=== PATIENT | male | born 1985 | race American Indian/Alaskan Native ===

== ENCOUNTER 2016-12-28 18:48 | Emergency (ER) | payer BC ==
[2016-12-28] MEDS ORDERED: TYLENOL PO ONE (18:57)
[2016-12-28] MEDS ORDERED: ZOFRAN ODT PO ONE (21:43)
--- NOTE | 2016-12-28 21:47 | Emergency Department Report ---
HPI - General Chief Complaint: Upper Respiratory Infection Time Seen by Provider: 12/28/16 21:42 - HPI HPI: Patient here reports that he is having cough, headache, fever, nausea, diarrhea and body aches. Reports some vomiting. He said this started yesterday and is getting worse bodyache is at 9 out of 10 denies any sore throat. Headache is a 3 out of 10 that comes and goes. Did not take any [id number] medication. He is able to tolerate liquids well. Denies any shortness of breath or chest pain. Patient temperature is 101.3) triage and he was given Tylenol 975 mg. denies any chronic medical problems. ED Past Medical Hx - Past Medical History Previous Medical History?: No - Surgical History Past Surgical History?: No - Family History Family history: no significant - Social History Smoking Status: Current Every Day Smoker Substance Use Type: None - Medications Home Medications: Home Medications Medication Instructions Recorded Confirmed Last Taken Type Acetaminophen/Codeine [Tylenol #3] 1 tab PO Q6H PRN #020 tab 01/15/16 Unknown Rx ALBUTEROL Inhaler [ProAir HFA 2 puff IH QID PRN #1 inhalation 12/28/16 Unknown Rx Inhaler] Azithromycin [Zithromax Z-LILLIAM] 250 mg PO DAILY #6 tab 12/28/16 Unknown Rx Ibuprofen [Motrin 600 MG tab] 600 mg PO Q4-6H PRN #21 tablet 12/28/16 Unknown Rx Ondansetron [Zofran Odt] 4 mg PO Q8HR PRN #15 tab.rapdis 12/28/16 Unknown Rx Oseltamivir [Tamiflu] 75 mg PO BID #10 cap 12/28/16 Unknown Rx guaiFENesin DM [Robitussin Dm] 10 ml PO Q6HR PRN #250 ml 12/28/16 Unknown Rx predniSONE [Deltasone] 50 mg PO QDAY #5 tab 12/28/16 Unknown Rx ED Review of Systems ROS: Stated complaint: BODY ACHES / FEVER Other details as noted in HPI Comment: All other systems reviewed and negative Constitutional: chills, fever Eyes: denies: eye pain, eye discharge ENT: congestion. denies: ear pain, throat pain Respiratory: cough. denies: shortness of breath, SOB with exertion, SOB at rest , stridor, wheezing Cardiovascular: denies: chest pain, palpitations, edema, syncope Genitourinary: denies: urgency, dysuria, frequency, hematuria, discharge Musculoskeletal: myalgia. denies: back pain, arthralgia Skin: denies: rash Neurological: headache, weakness. denies: numbness, paresthesias, confusion, abnormal gait, vertigo Physical Exam - Physical Exam Vital Signs: Vital Signs 12/28/16 18:54 Temperature 101.3 F H Pulse Rate 104 H Blood Pressure 126/77 O2 Sat by Pulse 20 L Oximetry Vital Signs 12/28/16 12/28/16 12/28/16 18:54 21:59 22:16 Temperature 101.3 F H Pulse Rate 104 H Pulse Rate [ 103 H Posterior Bilateral] Respiratory 20 Rate Respiratory 18 Rate [Posterior Bilateral] Blood Pressure 126/77 Blood Pressure [Left] O2 Sat by Pulse 20 L Oximetry 12/28/16 12/28/16 22:24 22:28 Temperature 98.9 F Pulse Rate 103 H Pulse Rate [ 108 H Posterior Bilateral] Respiratory 20 Rate Respiratory 18 Rate [Posterior Bilateral] Blood Pressure Blood Pressure 125/72 [Left] O2 Sat by Pulse 100 Oximetry General: This is a 31-year-old male well-nourished, well-developed and nontoxic in appearance. Physical Exam: Head: Normocephalic atraumatic Mouth: Moist, no pharyngeal exudate or erythema. Uvula is midline and oral airway is patent. No facial swelling. No peritonsillar abscesses. Nose: Congested without erythema to mucosa. Clear Drainage. Maxillary and frontal sinuses nontender to palpate Neck: Supple, no C-spine tenderness, no tracheal deviation. Nontender to palpate. no adenopathy Ears: Bilateral TMs congested without erythema. Bilateral EAC without any redness swelling or drainage. Abdomen: Soft, nontender to palpate in all quadrants, normal bowel sounds in all quadrant and negative CVA tenderness bilaterally. Neurological: GCS of 15, alert and oriented 3. Speech is clear and fluid. Normal gait. No motor or sensory deficit. Normal reflexes. No facial drooping. No pronator drift and negative Romberg. Eyes: Bilateral pupils equal and reactive to light, bilateral EOM intact. Bilateral sclera and conjunctiva without injection. Normal accommodation. Lungs: Clear to auscultate bilaterally no rhonchi wheezes or rales. Normal work of breathing . Dry cough no use of accessory muscles. extremity; No CCE. +2 pulses. No neurovascular compromise Cardiovascular: S1-S2, tachycardic at 104 regular rhythm. No murmurs. Skin: clean Dry and intact no rash no lesions Psych: Normal mood and behavior ED Course Vital Signs 12/28/16 18:54 Temperature 101.3 F H Pulse Rate 104 H Blood Pressure 126/77 O2 Sat by Pulse 20 L Oximetry Vital Signs 12/28/16 12/28/16 12/28/16 18:54 21:59 22:16 Temperature 101.3 F H Pulse Rate 104 H Pulse Rate [ 103 H Posterior Bilateral] Respiratory 20 Rate Respiratory 18 Rate [Posterior Bilateral] Blood Pressure 126/77 Blood Pressure [Left] O2 Sat by Pulse 20 L Oximetry 12/28/16 12/28/16 22:24 22:28 Temperature 98.9 F Pulse Rate 103 H Pulse Rate [ 108 H Posterior Bilateral] Respiratory 20 Rate Respiratory 18 Rate [Posterior Bilateral] Blood Pressure Blood Pressure 125/72 [Left] O2 Sat by Pulse 100 Oximetry Vital Signs 12/28/16 12/28/16 12/28/16 18:54 21:59 22:16 Temperature 101.3 F H Pulse Rate 104 H Pulse Rate [ 103 H Posterior Bilateral] Respiratory 20 Rate Respiratory 18 Rate [Posterior Bilateral] Blood Pressure 126/77 Blood Pressure [Left] O2 Sat by Pulse 20 L Oximetry 12/28/16 12/28/16 12/28/16 22:24 22:28 23:18 Temperature 98.9 F Pulse Rate 103 H 102 H Pulse Rate [ 108 H Posterior Bilateral] Respiratory 20 20 Rate Respiratory 18 Rate [Posterior Bilateral] Blood Pressure Blood Pressure 125/72 [Left] O2 Sat by Pulse 100 99 Oximetry - Reevaluation(s) Reevaluation #1: 12/28/16 23:15 Patient receives Xopenex and Atrovent nebulizer, Toradol, Tylenol, Zofran ODT and deltas disown 60 mg in emergency room. Upon reevaluation he said he is feeling better, temperature is normalized. General orally challenged in emergency room and is able to tolerate for couple of apple juice without any vomiting. 12/28/16 23:16 ED Medical Decision Making - Lab Data Influenza A positive - Radiology Data Radiology results: report reviewed Chest x-ray revealed moderate central bronchitis. Suspect hazy streaky infiltrate in the left lower lung zone. Minimal infrahilar atelectasis. - Medical Decision Making ED course: Discussed with patient that he has influenza A along with pneumonia in the left lung. I also discussed with him that he has bronchitis and also that he has some minimal collapse of part of his lungs and he will need to do deep breathing and coughing exercises every 3 hours while he is awake to help to keep his lungs expanded. Patient was given Xopenex 1.25 mg along with Atrovent 0.5 mg nebulizer treatment, Orapred 60 mg by mouth, Zofran 4 mg ODT, Tylenol 975 mg by mouth in triage and Toradol 60 mg IM and emergency room. She was orally challenged with 4 cups of apple juice and he tolerated this without any nausea vomiting or diarrhea. Skin temperature is normalized and his heart rate is 102 which is down from 104. I discussed the case with Dr. Farr and is located with patient being discharged home. I discussed the patient was easily need to increase his fluid intake. 2-3 days of fluid per day, take Motrin every 4-6 hours for the next 24 hours to keep his fever down and prevent dehydration, and take antibiotic and other medication as prescribed. She voiced understanding of discharge diagnosis and instructions. Condition discharged home with prescription for Tamiflu,Guaifenessin, Zithromax, albuterol , Motrin, and prednisone. Body aches and pain has subsided along with headache since Tylenol and Toradol. Has no nausea at present. Critical care attestation.: If time is entered above; I have spent that time in minutes in the direct care of this critically ill patient, excluding procedure time. ED Disposition Clinical Impression: Influenza A, Cough, Community acquired pneumonia, Fever in adult, Atelectasis, Nausea vomiting and diarrhea Bronchitis, acute Qualifiers: Bronchitis organism: unspecified organism Qualified Code(s): J20.9 - Acute bronchitis, unspecified Disposition: DISCHARGED TO HOME OR SELFCARE Is pt being admited?: No Does the pt Need Aspirin: No Condition: Stable Instructions: Acute Bronchitis (ED), Acute Nausea and Vomiting (ED), Community- acquired Pneumonia (ED), Influenza (ED), Fever in Adults (ED), Acute Diarrhea ( ED), Nutrition Tips for Relief of Diarrhea (ED) Additional Instructions: Please follow up with her primary care physician in 2 days and if he did not have one week and follow-up with [facility] If his symptoms worsen, then please return to the emergency room. Take medication as prescribed. Increase her fluid intake to 23 L of fluid per day Take cough medicine. Please rest for 72 hours please take deep breaths and cough every 3 hours while awake to keep her lungs expanded Prescriptions: ALBUTEROL Inhaler [ProAir HFA Inhaler] 2 puff IH QID PRN #1 inhalation PRN Reason: Cough and Wheezing Azithromycin [Zithromax Z-LILLIAM] 250 mg PO DAILY #6 tab guaiFENesin DM [Robitussin Dm] 10 ml PO Q6HR PRN #250 ml PRN Reason: Cough Ibuprofen [Motrin 600 MG tab] 600 mg PO Q4-6H PRN #21 tablet PRN Reason: FEVER AND PAIN Ondansetron [Zofran Odt] 4 mg PO Q8HR PRN #15 tab.rapdis PRN Reason: Nausea And Vomiting Oseltamivir [Tamiflu] 75 mg PO BID #10 cap predniSONE [Deltasone] 50 mg PO QDAY #5 tab Referrals: PRIMARY CARE, [Primary Care Provider] - 12/30/16 [facility] [Outside] - 12/30/16 Forms: Accompanied Note, Work/School Release Form(ED)
[2016-12-28] MEDS ORDERED: DELTASONE PO ONE (21:53)
[2016-12-28] MEDS ORDERED: ATROVENT IH ONE (21:53)
[2016-12-28] MEDS ORDERED: XOPENEX IH ONE (21:53)
[2016-12-28] MEDS ORDERED: TORADOL IM ONE (21:54)
[2016-12-28 22:25] VITALS: BP 125/72
--- NOTE | 2016-12-28 22:34 | XRay Report ---
FINAL REPORT PROCEDURE: XR CHEST ROUTINE 2V TECHNIQUE: Two view PA lateral chest HISTORY: fever and cough COMPARISON: No prior studies are available for comparison. FINDINGS: Mild central peribronchial cuffing and bronchovascular sheath thickening consistent with central bronchitis. Slight eventration left hemidiaphragm. Slight hazy infiltrate in the left lower lung zone. Suspect minimal atelectasis in the right middle lobe and/or lingula. No effusion seen IMPRESSION: Moderate central bronchitis Suspect hazy streaky infiltrate in the left lower lung zone Minimal infrahilar atelectasis
== END 2016-12-29 | disposition home or self-care (01) ==
LOC: ED 18:48
DX: J11.1 Influenza due to unidentified influenza virus with other respiratory manifestations (principal); J18.9 Pneumonia, unspecified organism; J98.11 Atelectasis; R11.2 Nausea with vomiting, unspecified; R19.7 Diarrhea, unspecified; F17.200 Nicotine dependence, unspecified, uncomplicated
CPT/HCPCS: 71020; 87400; 94640; 96372; 99283; J1885; J7512; Q0162

== ENCOUNTER 2017-01-25 09:27 | Emergency (ER) | payer BC ==
[2017-01-25 09:38] VITALS: BP 129/73
--- NOTE | 2017-01-25 11:33 | Emergency Department Report ---
HPI - General Chief Complaint: Extremity Problem,Nontraumatic Time Seen by Provider: 01/25/17 11:02 - HPI HPI: 31-year-old -Malag[place] male comes in for complaint of knot on left arm states that the get painful when they get cold. These knots have been present for greater than 2 years. And they are intermittent. He reports he was seen and [place] which they were not able to diagnose. He reports that the pain can be as high as 8 out of 10. Patient reports he has not taken any pain medication for these. Patient denies any fever chills no nausea no vomiting patient reports he is able to move his arm without difficulties. He reports no past medical history. He currently takes no medication has no known drug allergies. ED Past Medical Hx - Past Medical History Previous Medical History?: No - Surgical History Past Surgical History?: No - Social History Smoking Status: Current Every Day Smoker Substance Use Type: None - Medications Home Medications: Home Medications Medication Instructions Recorded Confirmed Last Taken Type Acetaminophen/Codeine [Tylenol #3] 1 tab PO Q6H PRN #020 tab 01/15/16 Unknown Rx ALBUTEROL Inhaler [ProAir HFA 2 puff IH QID PRN #1 inhalation 12/28/16 Unknown Rx Inhaler] Azithromycin [Zithromax Z-LILLIAM] 250 mg PO DAILY #6 tab 12/28/16 Unknown Rx Ibuprofen [Motrin 600 MG tab] 600 mg PO Q4-6H PRN #21 tablet 12/28/16 Unknown Rx Ondansetron [Zofran Odt] 4 mg PO Q8HR PRN #15 tab.rapdis 12/28/16 Unknown Rx Oseltamivir [Tamiflu] 75 mg PO BID #10 cap 12/28/16 Unknown Rx guaiFENesin DM [Robitussin Dm] 10 ml PO Q6HR PRN #250 ml 12/28/16 Unknown Rx predniSONE [Deltasone] 50 mg PO QDAY #5 tab 12/28/16 Unknown Rx Ibuprofen [Motrin 800 MG tab] 800 mg PO Q8HR PRN #30 tablet 01/25/17 Unknown Rx ED Review of Systems ROS: Stated complaint: LEFT ELBOW PAIN Other details as noted in HPI Constitutional: denies: chills, fever Eyes: denies: eye pain, eye discharge, vision change ENT: denies: ear pain, throat pain Respiratory: denies: cough, shortness of breath, wheezing Cardiovascular: denies: chest pain, palpitations Endocrine: no symptoms reported Gastrointestinal: denies: abdominal pain, nausea, diarrhea Genitourinary: denies: urgency, dysuria Musculoskeletal: denies: back pain, joint swelling, arthralgia Skin: denies: rash, lesions Neurological: denies: headache, weakness, paresthesias Psychiatric: denies: anxiety, depression Hematological/Lymphatic: denies: easy bleeding, easy bruising Physical Exam - Physical Exam Vital Signs: Vital Signs 01/25/17 09:33 Temperature 98.0 F Pulse Rate 73 Respiratory 16 Rate Blood Pressure 129/73 O2 Sat by Pulse 100 Oximetry Physical Exam: GENERAL: Alert and oriented x3, no apparent distress, Normal Gait, atraumatic. HEAD: Head is normocephalic and a-traumatic. EYES: Extra ocular muscles are intact. Pupils are equal, round, and reactive to light and accommodation. MOUTH:Mouth is well hydrated and without lesions. Tonsils nonerythematous or swollen, Uvula midline, Tongue not elevated. Mucous membranes are moist. Posterior pharynx clear, no exudate or lesions. Patent airways. NECK: Supple. Non edematous, No carotid bruits. No lymphadenopathy or thyromegaly. LUNGS: Symetrical with respiration, No wheezing, no rales or crackles, CTAB. HEART: S1, S2 present, regular rate and rhythm without murmur, no rubs, no gallops. EXTREMITIES/MUSCULOSKELETAL: No cyanosis, clubbing, rash, lesions or edema. Full ROM bilaterally. UE/LE Pulses 2+ bilaterally. LE and UE 5+ strength bilaterally NEUROLOGIC: No focal Deficit, Cranial nerves II through XII are grossly intact. No loss of sensation, No facial droop, Negative rhomberg. PSYCHIATRIC: Mood is congruent with affect, denies suicidal or homicidal ideations. SKIN: Warm and dry, No lesions, No ulceration or induration present left arm soft lesion on the anterior of the forearm and posterior of the upper arm. There is no erythematous nonerythematous is nontender patient is able to have full range of motion. No discharge no open areas of wounds. ED Course Vital Signs 01/25/17 09:33 Temperature 98.0 F Pulse Rate 73 Respiratory 16 Rate Blood Pressure 129/73 O2 Sat by Pulse 100 Oximetry ED Medical Decision Making - Medical Decision Making 31-year-old -Malagasy male comes in for nontraumatic knots on his left arm that's been present greater than 2 years. I discussed the patient at this is not considered an acute emergency. Stated the patient that his vital signs are within normal limits he has no fever no nausea no vomiting no chills. I discussed the patient that there is no drainage from the ear able to move her arm without any difficulties. That we will refer him to a primary care provider for further evaluation. I did list 3 primary care providers for his choice. I did give him a prescription for Motrin for pain management. Patient verbalized understanding Critical care attestation.: If time is entered above; I have spent that time in minutes in the direct care of this critically ill patient, excluding procedure time. ED Disposition Clinical Impression: Lesion of upper extremity Disposition: DISCHARGED TO HOME OR SELFCARE Is pt being admited?: No Does the pt Need Aspirin: No Condition: Stable Additional Instructions: Please follow up with the primary care provider for further evaluation of those knots. I have listed 3 for urinary discharge summary of awful given U a prescription for ibuprofen for pain. Prescriptions: Ibuprofen [Motrin 800 MG tab] 800 mg PO Q8HR PRN #30 tablet PRN Reason: Pain Referrals: PRIMARY CAREMD [Primary Care Provider] - 3-5 Days [facility] [Provider Group] - 3-5 Days SHRUTHI FRANCOIS MD [Staff Physician] - 3-5 Days JOSE ESCALANTE MD [Staff Physician] - 3-5 Days Forms: Work/School Release Form(ED)
== END 2017-01-25 11:45 | disposition home or self-care (01) ==
LOC: ED 09:27
DX: L98.8 Other specified disorders of the skin and subcutaneous tissue (principal); F17.200 Nicotine dependence, unspecified, uncomplicated
CPT/HCPCS: 99282

== ENCOUNTER 2018-01-01 14:31 | Emergency (ER) | payer SELFPAY ==
[2018-01-01 14:54] VITALS: BP 134/85
--- NOTE | 2018-01-01 15:16 | XRay Report ---
RIGHT ANKLE RADIOGRAPHS INDICATION: Right ankle injury. COMPARISON: None similar. FINDINGS: AP, lateral and oblique right ankle radiographs demonstrate intact mortise, malleoli and talar dome contour. Moderate diffuse soft tissue swelling noted laterally and also some possibly anteriorly. Tiny plantar calcaneal spur. CONCLUSION: Right ankle soft tissue swelling/injury without acute bony abnormality, as described. Please correlate. Thank you for the opportunity to participate in this patient's care.
[2018-01-01] MEDS ORDERED: MOTRIN PO ONE (16:33)
--- NOTE | 2018-01-01 16:38 | Emergency Department Report ---
ED Lower Extremity HPI - General Chief Complaint: Extremity Injury, Lower Stated Complaint: RIGHT ANKLE PAIN Time Seen by Provider: 01/01/18 16:33 Source: patient Mode of arrival: Ambulatory Limitations: No Limitations - History of Present Illness Initial Comments: This is a 32-year-old male nontoxic, well nourished in appearance, no acute signs of distress presents to the ED with c/o of left ankle pain and swelling x1 day. Patient stated he was playing basketball and twisted his ankle. Patient denies any numbness, tingling, fever, chills, headache, nausea, vomiting , chest pain or shortness of breathe. Patient denies any other trauma. Patient denies any joint redness. Patient denies any allergies or PMH. MD Complaint: ankle injury -: days(s) (1) Injury: Ankle: Right Type of Injury: inversion Place: work, street/outdoors Severity: mild Severity scale (0 -10): 8 Improves With: immobilization Worsens With: movement, palpation Context: running Associated Symptoms: swelling, unable to bear weight. denies: snap/pop sensation, numbness, tingling, able to partially bear weight, ambulatory - Related Data Previous Rx's Medication Instructions Recorded Last Taken Type Acetaminophen/Codeine [Tylenol #3] 1 tab PO Q6H PRN #020 tab 01/15/16 Unknown Rx ALBUTEROL Inhaler [ProAir HFA 2 puff IH QID PRN #1 inhalation 12/28/16 Unknown Rx Inhaler] Azithromycin [Zithromax Z-LILLIAM] 250 mg PO DAILY #6 tab 12/28/16 Unknown Rx Ibuprofen [Motrin 600 MG tab] 600 mg PO Q4-6H PRN #21 tablet 12/28/16 Unknown Rx Ondansetron [Zofran Odt] 4 mg PO Q8HR PRN #15 tab.rapdis 12/28/16 Unknown Rx Oseltamivir [Tamiflu] 75 mg PO BID #10 cap 12/28/16 Unknown Rx guaiFENesin DM [Robitussin Dm] 10 ml PO Q6HR PRN #250 ml 12/28/16 Unknown Rx predniSONE [Deltasone] 50 mg PO QDAY #5 tab 12/28/16 Unknown Rx Ibuprofen [Motrin 800 MG tab] 800 mg PO Q8HR PRN #30 tablet 01/25/17 Unknown Rx Ibuprofen [Motrin] 600 mg PO Q8H PRN #30 tablet 01/01/18 Unknown Rx Allergies Allergy/AdvReac Type Severity Reaction Status Date / Time No Known Allergies Allergy Verified 01/14/16 20:39 ED Review of Systems ROS: Stated complaint: RIGHT ANKLE PAIN Other details as noted in HPI Constitutional: denies: chills, fever Eyes: denies: eye pain, eye discharge, vision change ENT: denies: ear pain, throat pain Respiratory: denies: cough, shortness of breath, wheezing Cardiovascular: denies: chest pain, palpitations Endocrine: no symptoms reported Gastrointestinal: denies: abdominal pain, nausea, diarrhea Genitourinary: denies: urgency, dysuria Musculoskeletal: joint swelling, arthralgia. denies: back pain Skin: denies: rash, lesions Neurological: denies: headache, weakness, paresthesias Psychiatric: denies: anxiety, depression Hematological/Lymphatic: denies: easy bleeding, easy bruising ED Past Medical Hx - Past Medical History Previous Medical History?: No - Surgical History Past Surgical History?: No - Social History Smoking Status: Former Smoker - Medications Home Medications: Home Medications Medication Instructions Recorded Confirmed Last Taken Type Acetaminophen/Codeine [Tylenol #3] 1 tab PO Q6H PRN #020 tab 01/15/16 Unknown Rx ALBUTEROL Inhaler [ProAir HFA 2 puff IH QID PRN #1 inhalation 12/28/16 Unknown Rx Inhaler] Azithromycin [Zithromax Z-LILLIAM] 250 mg PO DAILY #6 tab 12/28/16 Unknown Rx Ibuprofen [Motrin 600 MG tab] 600 mg PO Q4-6H PRN #21 tablet 12/28/16 Unknown Rx Ondansetron [Zofran Odt] 4 mg PO Q8HR PRN #15 tab.rapdis 12/28/16 Unknown Rx Oseltamivir [Tamiflu] 75 mg PO BID #10 cap 12/28/16 Unknown Rx guaiFENesin DM [Robitussin Dm] 10 ml PO Q6HR PRN #250 ml 12/28/16 Unknown Rx predniSONE [Deltasone] 50 mg PO QDAY #5 tab 12/28/16 Unknown Rx Ibuprofen [Motrin 800 MG tab] 800 mg PO Q8HR PRN #30 tablet 01/25/17 Unknown Rx Ibuprofen [Motrin] 600 mg PO Q8H PRN #30 tablet 01/01/18 Unknown Rx ED Physical Exam - General Limitations: No Limitations General appearance: alert, in no apparent distress - Head Head exam: Present: atraumatic, normocephalic - Eye Eye exam: Present: normal appearance Pupils: Present: normal accommodation - ENT ENT exam: Present: normal exam, mucous membranes moist - Neck Neck exam: Present: normal inspection, full ROM. Absent: tenderness, meningismus - Respiratory Respiratory exam: Present: normal lung sounds bilaterally. Absent: respiratory distress - Cardiovascular Cardiovascular Exam: Present: regular rate, normal rhythm, normal heart sounds. Absent: systolic murmur, diastolic murmur, rubs, gallop - GI/Abdominal GI/Abdominal exam: Present: soft, normal bowel sounds - Rectal Rectal exam: Present: deferred - Extremities Exam Extremities exam: Present: normal inspection, full ROM, tenderness, normal capillary refill, joint swelling. Absent: pedal edema, calf tenderness - Expanded Lower Extremity Exam Right Hip exam: Present: normal inspection, full ROM Upper Leg exam: Present: normal inspection, full ROM Knee exam: Present: normal inspection, full ROM Lower Leg exam: Present: normal inspection, full ROM Ankle exam: Present: normal inspection, full ROM, tenderness, swelling. Absent : abrasion, laceration, ecchymosis, deformity, crepidus, dislocation, erythema, anterior draw sign Foot/Toe exam: Present: normal inspection, full ROM. Absent: tenderness, swelling, abrasion, laceration, ecchymosis, deformity, crepidus, dislocation, erythema, amputation, puncture wound, foreign body, calcaneal tenderness, tenderness at base of 5th metatarsal, nail avulsion, subungual hematoma Neuro vascular tendon exam: Present: no vascular compromise. Absent: pulse deficit, abnormal cap refill, motor deficit, sensory deficit, tendon deficit, extremity cold to touch, pallor, abnormal 2-point discrimination, decreased fine /light touch, foot drop, peroneal nerve deficit, significant pain with passive ROM of distal joint Gait: Positive: unable to bear weight - Back Exam Back exam: Present: normal inspection, full ROM - Neurological Exam Neurological exam: Present: alert, oriented X3, normal gait - Psychiatric Psychiatric exam: Present: normal affect, normal mood - Skin Skin exam: Present: warm, dry, intact, normal color. Absent: rash ED Course Vital Signs 01/01/18 14:51 Temperature 98.6 F Pulse Rate 90 Respiratory 18 Rate Blood Pressure 134/85 O2 Sat by Pulse 100 Oximetry - Reevaluation(s) Reevaluation #1: 01/01/18 16:42 Patient is speaking in full sentences with no signs of distress noted. ED Lower Extremity MDM - Medical Decision Making This is a 32-yaer-old male that presents with right ankle sprain. Patient is stable and was examined by me. Xray obtained and dictated by the radiologist with no dislocation or fractures noted. Patient is notified of the xray results with no questions noted. Patient received Motrin in the ED and ice. Patient was instructed to RICE therapy. Patient is discharged with ankle stirrup and crutches and was educated by RN how to use crutches. Patient was instructed to Follow-up with a orthopedic doctor in 3-5 days or if symptoms worsen and continue return to emergency room as soon as possible. At time of discharge, the patient does not seem toxic or ill in appearance. No acute signs of distress noted. Patient agrees to discharge treatment plan of care. No further questions noted by the patient. Critical care attestation.: If time is entered above; I have spent that time in minutes in the direct care of this critically ill patient, excluding procedure time. ED Disposition Clinical Impression: Right ankle sprain Qualifiers: Encounter type: initial encounter Involved ligament of ankle: unspecified ligament Qualified Code(s): S93.401A - Sprain of unspecified ligament of right ankle, initial encounter Disposition: TO HOME OR SELFCARE Is pt being admited?: No Does the pt Need Aspirin: No Condition: Stable Instructions: Ankle Sprain (ED), Ankle Stirrup Splint (ED), Crutch Instructions (ED), RICE Therapy (ED) Additional Instructions: Follow-up with a orthopedic doctor in 3-5 days or if symptoms worsen and continue return to emergency room as soon as possible. Prescriptions: Ibuprofen [Motrin] 600 mg PO Q8H PRN #30 tablet PRN Reason: Pain Referrals: PRIMARY CARE, [Primary Care Provider] - 3-5 Days SANDRO CLARK MD [Staff Physician] - 3-5 Days [facility] [Outside] - 3-5 Days [facility] [Outside] - 3-5 Days Forms: Work/School Release Form(ED)
== END 2018-01-01 17:06 | disposition home or self-care (01) ==
LOC: ED 14:31
DX: S93.401A Sprain of unspecified ligament of right ankle, initial encounter (principal); Z87.891 Personal history of nicotine dependence; X50.1XXA Overexertion from prolonged static or awkward postures, initial encounter; Y93.67 Activity, basketball; Y92.89 Other specified places as the place of occurrence of the external cause; Y99.8 Other external cause status

== ENCOUNTER 2019-11-15 13:24 | Emergency (ER) | payer SELFPAY ==
[2019-11-15 13:28] VITALS: BP 130/71
--- NOTE | 2019-11-15 15:09 | Emergency Department Report ---
Chief Complaint: Dental/Oral Stated Complaint: RT TOP TOOTHACHE Time Seen by Provider: 11/15/19 15:02 - HPI History of Present Illness: This is a 33 y.o. M. that presents to the ER with right sided dental pain for 3 days. Taking NSAIDs without relief. Denies difficulty swallowing, fever, chills, sore throat, facial swelling, or headache. - ROS Review of Systems: ENT: dental pain All other symptoms reviewed and no complaints - Exam Vital Signs: Vital Signs 11/15/19 13:27 Temperature 98.7 F Pulse Rate 79 Respiratory 18 Rate Blood Pressure 130/71 O2 Sat by Pulse 99 Oximetry Physical Exam: General Limitations: No Limitations General appearance: alert, in no apparent distress -HEENT HEENT exam: Present: dark brown dental caries medial #3, ttp, no gingival swelling, uvula midline, no exudate - Respiratory Respiratory exam: Present: normal lung sounds bilaterally. Absent: respiratory distress, wheezes, rales, rhonchi - Cardiovascular Cardiovascular Exam: Present: regular rate, normal rhythm, normal heart sounds. Absent: systolic murmur, diastolic murmur, rubs, gallop - GI/Abdominal GI/Abdominal exam: Present: soft, normal bowel sounds. Absent: tenderness, distended, guarding, rebound, rigid - Extremities Exam Extremities exam: Present: normal inspection - Neurological Exam Neurological exam: Present: alert, oriented X3 - Psychiatric Psychiatric exam: Present: normal affect, normal mood - Skin Skin exam: Present: warm, dry, intact, normal color. Absent: rash MSE screening note: Focused history and physical exam performed. Due to findings the following was ordered: ED Medical Decision Making - Medical Decision Making This is a 33 y.o. M. that presents to the ER with right upper dental pain for 3 days. Patient is notoxic appearing and in no acute distress. Vitals are stable. There is a dark brown dental caries medial #3, ttp, no gingival swelling, uvula midline, no exudate. Patient is not immunosuppressed, no tooth fracture, avulsion, or bleeding socket. No gingival hyperplasia or signs of drug reaction. Antibiotics and pain medication deferred at this time due to no signs of infection. This is a non-emergent complaint. Patient instructed to take NSAIDs. He was given a list of emergency dental clinics for follow up. Patient discharged home stable. ED Disposition for MSE Disposition: MED SCREENING EXAM-LEFT Condition: Stable Instructions: Toothache (ED) Referrals: [facility] [Outside] - 3-5 Days [facility] [Outside] - 3-5 Days [facility] [Outside] - 3-5 Days Time of Disposition: 15:09
== END 2019-11-15 15:15 | disposition left against medical advice (07) ==
LOC: ED 13:24
DX: K08.89 Other specified disorders of teeth and supporting structures (principal)
CPT/HCPCS: 99281

== ENCOUNTER 2021-11-04 05:16 | Emergency (ER) | payer OTHER ==
[2021-11-04 06:12] VITALS: BP 132/92
--- NOTE | 2021-11-04 06:23 | Emergency Department Report ---
ED General Adult HPI - General Chief complaint: Chest Pain Stated complaint: LT SIDE CHEST PAIN, SPITTING BLOOD Time Seen by Provider: 11/04/21 05:59 Source: patient Mode of arrival: Ambulatory Limitations: No Limitations - History of Present Illness Initial comments: Patient presents with a 1 day history of left chest pain. It is described as an aching sensation. This is in the left chest. The symptoms do not radiate or migrate. He does state that he is not actively having chest pain now. Patient reports that he did have some hemoptysis last night. He reports that he was coughing and blowing his nose. He went to the restroom and noticed that it was pink-tinged. Patient does not have any history of travel or trauma. Patient has had no fevers or chills. Is not bleeding from other sites. There is no epistaxis. He has no hematuria, hematemesis, or melena. Patient denies any history of bleeding disorder. There is no family history of bleeding disorder. He has not been sick lately. He denies pain or swelling in the legs. Severity scale (0 -10): 0 - Related Data Previous Rx's Medication Instructions Recorded Last Taken Type Albuterol Mdi (or & Nicu Only) 2 puff IH QID PRN #1 inhalation 11/04/21 Unknown Rx [ProAir HFA Inhaler] Ibuprofen [Motrin 600 MG tab] 600 mg PO Q4-6H PRN #21 tablet 11/04/21 Unknown Rx Allergies Allergy/AdvReac Type Severity Reaction Status Date / Time No Known Allergies Allergy Verified 11/15/19 13:25 ED Review of Systems ROS: Stated complaint: LT SIDE CHEST PAIN, SPITTING BLOOD Other details as noted in HPI Comment: All other systems reviewed and negative Constitutional: denies: fever Eyes: denies: vision change ENT: denies: epistaxis Respiratory: see HPI Cardiovascular: as per HPI Endocrine: denies: unexplained weight loss Gastrointestinal: denies: hematemesis Genitourinary: denies: hematuria Musculoskeletal: denies: back pain Skin: denies: rash Neurological: denies: headache Hematological/Lymphatic: denies: easy bruising ED Past Medical Hx - Past Medical History Previous Medical History?: No - Surgical History Past Surgical History?: No - Family History Family history: no significant - Social History Smoking Status: Current Some Day Smoker Substance Use Type: None - Medications Home Medications: Home Medications Medication Instructions Recorded Confirmed Last Taken Type Albuterol Mdi (or & Nicu Only) 2 puff IH QID PRN #1 inhalation 11/04/21 Unknown Rx [ProAir HFA Inhaler] Ibuprofen [Motrin 600 MG tab] 600 mg PO Q4-6H PRN #21 tablet 11/04/21 Unknown Rx ED Physical Exam - General Limitations: No Limitations, Other (Pulse ox noted and normal) General appearance: alert, in no apparent distress - Head Head exam: Present: atraumatic, normocephalic - Eye Eye exam: Present: normal appearance, EOMI. Absent: scleral icterus - ENT ENT exam: Present: normal orophraynx, normal external ear exam - Neck Neck exam: Present: normal inspection. Absent: meningismus - Respiratory Respiratory exam: Present: normal lung sounds bilaterally. Absent: respiratory distress - Cardiovascular Cardiovascular Exam: Present: regular rate, normal rhythm - GI/Abdominal GI/Abdominal exam: Present: soft - Extremities Exam Extremities exam: Present: normal capillary refill. Absent: calf tenderness - Back Exam Back exam: Absent: CVA tenderness (R), CVA tenderness (L) - Neurological Exam Neurological exam: Present: alert, oriented X3, CN II-XII intact, normal gait. Absent: motor sensory deficit - Psychiatric Psychiatric exam: Present: normal affect, normal mood - Skin Skin exam: Present: warm, dry ED Course Vital Signs 11/04/21 06:05 Temperature 98.0 F Pulse Rate 87 Respiratory 17 Rate Blood Pressure 132/92 [Right] O2 Sat by Pulse 99 Oximetry - Reevaluation(s) Reevaluation #1: 11/04/21 06:21 EKG was noted. X-ray was ordered. Old records reviewed. Reevaluation #2: 11/04/21 06:31 X-ray was reviewed. Patient was discharged. ED Medical Decision Making - EKG Data -: EKG Interpreted by Me - EKG Data 11/04/21 06:21 0558-EKG shows normal sinus rhythm at 82. Patient has J-point elevation diffusely. This includes leads I, 2, 3, aVF, V3 through V6. There is no reciprocal change. There is no ST depression suggestive of ischemia. This does appear to be J-point elevation as opposed to STEMI. There is no old EKG for comparison. - Radiology Data interpreted by me: Chest x-ray shows no evidence of pneumonia or pneumothorax. There is a normal cardiac silhouette. Patient does not have evidence of pleural effusion. There is no subcutaneous emphysema. Bony structures appear to be unremarkable. - Medical Decision Making Patient presents secondary to chest pain with reports of hemoptysis. He basically is describing a pink-tinged sputum. It is certainly conceivable this is blood related to some sort of tear in the posterior pharynx although the oropharynx looks clear at this time. He has not had epistaxis. He has had no bleeding from other sites. There is no family history of bleeding disorder. I do not believe this represents any type of coagulopathy. Again radiographically, there is no evidence of pneumonia. He does not have hypoxia, tachycardia, or other risk factor for pulmonary embolism. I do not believe this would be the isolated complaint or presentation if this were PE related. Critical Care Time: No Critical care attestation.: If time is entered above; I have spent that time in minutes in the direct care of this critically ill patient, excluding procedure time. ED Disposition Clinical Impression: Left-sided chest pain, Hemoptysis Disposition: HOME / SELF CARE / HOMELESS Is pt being admited?: No Condition: Stable Instructions: Nonspecific Chest Pain, Adult, Hemoptysis, Cough, Adult, [id number] Additional Instructions: Drink plenty water. Return for problems. Follow-up with a regular doctor for recheck. Use Tylenol for pain or fever. Prescriptions: Ibuprofen [Motrin 600 MG tab] 600 mg PO Q4-6H PRN #21 tablet PRN Reason: FEVER AND PAIN Albuterol Mdi (or & Nicu Only) [ProAir HFA Inhaler] 2 puff IH QID PRN #1 inhalation PRN Reason: Cough and Wheezing Referrals: PRIMARY CARE, [Primary Care Provider] - 3-5 Days ALTAGRACIA BYNUM MD [Staff Physician] - 3-5 Days
--- NOTE | 2021-11-04 06:39 | XRay Report ---
CHEST 2 VIEWS INDICATION / CLINICAL INFORMATION: hemoptysis. COMPARISON: Chest x-ray 12/28/2016 FINDINGS: SUPPORT DEVICES: None. HEART / MEDIASTINUM: No significant abnormality. LUNGS / PLEURA: No significant pulmonary or pleural abnormality. No pneumothorax. ADDITIONAL FINDINGS: No significant additional findings. IMPRESSION: 1. No active cardiopulmonary disease. Signer Name: Maxi Mckinney II, MD Signed: 11/04/2021 6:35 AM Workstation Name: [id number]
--- NOTE | 2021-11-04 10:56 | Electrocardiograph Report ---
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
== END 2021-11-04 06:55 | disposition home or self-care (01) ==
LOC: ED 05:16
DX: R07.89 Other chest pain (principal); R04.2 Hemoptysis; F17.200 Nicotine dependence, unspecified, uncomplicated; Z79.899 Other long term (current) drug therapy
CPT/HCPCS: 71046; 93005; 93010; 99283